=== PATIENT | female | born 1970 | race Hispanic/Latino ===

== ENCOUNTER 2022-04-29 05:54 | Day surgery (SDC) | payer OTHER ==
[2022-04-26 10:22] LABS: BASOPHILS % (AUTO) 0.6 % (0.0-5.0); EOSINOPHILS % (AUTO) 1.5 % (0.0-8.0); HEMATOCRIT 38.4 % (36-48); LYMPHOCYTES % (AUTO) 34.9 % (21.0-51.0); MEAN CORPUSCULAR HGB CONC 33.9 g/dL (32.0-36.0); MEAN CORPUSCULAR VOLUME 88.5 fL (79-99); MONOCYTES % (AUTO) 4.9 % (3.0-13.0); NEUTROPHILS % (AUTO) 57.7 % (40.0-77.0); PLATELET COUNT (AUTO) 227 K/uL (130-400); RED BLOOD CELL COUNT(AUTO) 4.34 MIL/uL (4.00-5.50); RED CELL DISTRIBUTION WIDTH 12.7 % (11.0-15.5); WHITE BLOOD COUNT (AUTO) 7.9 K/uL (4.8-10.8)
[2022-04-26 10:23] LABS: APPEARANCE,URINE CLEAR (CLEAR); BILIRUBIN,URINE NEGATIVE (NEGATIVE); COLOR,URINE LIGHT-YELLOW (YELLOW); GLUCOSE, URINE (UA) NEGATIVE (NEGATIVE); KETONES,URINE NEGATIVE (NEGATIVE); LEUKOCYTE ESTERASE ,URINE NEGATIVE Leu/uL (NEGATIVE); NITRATE,URINE NEGATIVE (NEGATIVE); OCCULT BLOOD,URINE NEGATIVE (NEGATIVE); PROTEIN,URINE NEGATIVE (NEGATIVE); UROBILINOGEN,URINE 0.2 mg/dL (0.2-1.0)
[2022-04-26] MEDS: CEFAZOLIN SODIUM 2 GM VIAL IVPB SCH (13:00)
[2022-04-28 10:17] VITALS: BP 165/67
[2022-04-29] VITALS (20 sets, daily range): BP systolic 102–143; BP diastolic 46–89
[~2022-04-29] VITALS: Ht 162.6 cm; Wt 93.0 kg
[~2022-04-29 05:54] MED LIST: ATOR20TA65 PO; METF-444 PO; TELM40TA8 PO
[2022-04-29] MEDS ORDERED: 0.9%NACL 1000ML 1,000 ML IV ONE (06:28)
[2022-04-29 07:45] LABS: CREATININE 0.7 mg/dL (0.5-1.5); POTASSIUM 3.4 mmol/L (3.5-5.1)
[2022-04-29] MEDS ORDERED: SUCCINYLCHOLINE CHLORIDE 20 MG/ML 10 ML VIAL ONE ×2 (11:22→12:00)
[2022-04-29] MEDS ORDERED: PROPOFOL 10 MG/ML 20ML VIAL IV ONE ×3 (11:23→12:39)
[2022-04-29] MEDS ORDERED: FENTANYL CITRATE PF 50 MCG/1 ML 2ML VIAL ONE ×3 (11:23→13:18)
[2022-04-29] MEDS ORDERED: MIDAZOLAM HCL 1 MG/ML 2ML VIAL ONE ×2 (11:23→12:01)
[2022-04-29] MEDS ORDERED: ROCURONIUM 10MG/1ML SYR 10 MG/ML ML ONE ×2 (11:23→12:01)
[2022-04-29] MEDS ORDERED: EPHEDRINE SULFATE 50 MG/ML AMPULE ONE (11:52)
[2022-04-29] MEDS ORDERED: DEXAMETHASONE SOD PHOSPHATE 10MG/ML 1ML VIAL ONE (12:00)
[2022-04-29] MEDS ORDERED: GLYCOPYRROLATE 1 MG/5 ML SYRINGE ONE (12:00)
[2022-04-29] MEDS ORDERED: ONDANSETRON 4MG INJ ONE ×3 (12:00→14:39)
[2022-04-29] MEDS ORDERED: LIDOCAINE PF 100MG/5ML (2%) SYRINGE 5ML ONE (12:00)
[2022-04-29] MEDS ORDERED: NEOSTIGMINE 5MG/5ML SYR IV ONE (12:01)
[2022-04-29] MEDS: CEFAZOLIN SODIUM 2 GM VIAL IVPB SCH (12:12)
[2022-04-29] MEDS ORDERED: PHENYLEPHRINE HCL 10 MG/ML 1ML VIAL IV ONE ×2 (12:29→13:18)
[2022-04-29] MEDS ORDERED: KETAMINE 50MG/ML SYRINGE 50 MG/ML DISP.SYRIN ONE (13:53)
[2022-04-29] MEDS ORDERED: METOCLOPRAMIDE 10 MG/2 ML VIAL ONE (14:39)
[2022-04-29] MEDS ORDERED: KETOROLAC 30MG VIAL (30MG/ML) ONE (15:04)
[2022-04-29] MEDS ORDERED: PROMETHAZINE HCL 25 MG/ML 1ML AMPULE IM ONE (15:04)
[2022-04-29] MEDS ORDERED: FAMOTIDINE 20MG VIAL IV ONE (15:04)
[2022-04-29] MEDS ORDERED: SCOPOLAMINE HYDROBROMIDE 1 EACH ADH..PATCH TD ONE (15:26)
== END 2022-04-29 17:00 | disposition home or self-care (01) ==
LOC: DAH 05:54
PROVIDERS: ATTEND Student in an Organized Health Care Education/Training Program
DX: C50.411 Malignant neoplasm of upper-outer quadrant of right female breast (principal); Z20.822 Contact with and (suspected) exposure to COVID-19; C96.9 Malignant neoplasm of lymphoid, hematopoietic and related tissue, unspecified; I10 Essential (primary) hypertension; E11.9 Type 2 diabetes mellitus without complications; E66.9 Obesity, unspecified; E78.00 Pure hypercholesterolemia, unspecified; Z82.49 Family history of ischemic heart disease and other diseases of the circulatory system; Z83.3 Family history of diabetes mellitus; Z87.891 Personal history of nicotine dependence; Z79.84 Long term (current) use of oral hypoglycemic drugs; Z79.899 Other long term (current) drug therapy; Z68.35 Body mass index [BMI] 35.0-35.9, adult
CPT/HCPCS: 84703; 85025; 87426; 81003; 36415 ×2; 71045; 19301; 38525; 80048; 82948 ×2; 81025; 76098; 77065; 78195; 19285; A6260; A4663; J3490 ×4; J3010 ×2; J1100; J2710; J0330 ×2; J7030; J2550; J2001; J2250; J2704 ×3; J2405 ×3; J1885; J2765; J2370 ×2; J0690; A9541; G0168; A4649 ×3; C1713; A4215; A4223; A6402; A4222; A4221; A4600

== ENCOUNTER → 2025-02-03 | Outpatient (CLI) | payer OTHER ==
[~2025-02-03] MED LIST changes: +IOHEXOL-350 75 ML VIAL IV ONE
--- NOTE | 2025-02-04 02:38 | HMCIMG ---
EXAM: CT ABDOMEN AND PELVIS WITH INTRAVENOUS CONTRAST CLINICAL HISTORY: Left lower quadrant pain. TECHNIQUE: Axial CT images of the abdomen and pelvis were obtained after IV contrast administration. Additional 7 minutes delayed images have also been acquired. Oral contrast has also been administered. Multiplanar reconstructions. The protocol utilizes one or more of the following dose reduction techniques: automated exposure control, adjustment of mA and/or kV according to patient size, and/or use of iterative reconstruction technique. Total exam DLP is 2571 mGy x cm. CONTRAST: IV Contrast: Administered. Oral Contrast: Administered. COMPARISON: None. FINDINGS: LOWER CHEST: Median sternotomy status. Tip of the catheter is visualized in the right atrium lumen. There are coronary arterial calcifications present. Lung bases are clear. No cardiomegaly or pericardial effusion observed. LIVER: Fatty infiltration of the liver. GALLBLADDER AND BILIARY TREE: The gallbladder is unremarkable. No calcified gallstones. There is no gallbladder distension or wall edema. No intra- or extrahepatic biliary ductal dilation. PANCREAS: The pancreas is unremarkable. No focal cystic or solid mass. SPLEEN: The spleen is unremarkable. Normal size without focal cystic or solid mass. There are 2 splenules measuring 1.7 cm and 1.5 cm. ADRENAL GLANDS: The both adrenals are unremarkable. Non-enlarged. KIDNEYS AND URETERS: Normal renal size and position. The delayed phase images demonstrate normal contrast excretion through both kidneys and ureters. However, there is slight prominence of the right renal pelvicalyceal system with abrupt caliber transition at the ureteropelvic junction, which may represent mild degree of ureteropelvic junction stricture causing mild hydronephrosis. No hydronephrosis on the left side. URINARY BLADDER: The urinary bladder is incompletely distended at the time of examination. Otherwise grossly unremarkable. REPRODUCTIVE ORGANS: The uterus and adnexa are unremarkable. No pelvic masses or pelvic ascites. BOWEL: No stomach or bowel distension. The appendix is unremarkable, series 2, image [id number]. There are colonic diverticula. There is focal short segment thickening of the distal descending and proximal sigmoid colon wall (1.0 cm thick) with subtle pericolonic fat stranding. There is fatty metaplasia of the ileocecal valve cusps. No focal inflammatory change observed. LYMPH NODES: Not enlarged mesenteric or retroperitoneal lymph nodes. PERITONEUM: No ascites or free air. No other fluid collection. VESSELS: The abdominal aorta demonstrates atheromatous calcification without aneurysm or dissection. ABDOMINAL WALL: There is a small umbilical hernia containing fat with defect measuring 0.7 cm. BONES: Degenerative changes present in the lower lumbar spine. No lytic or blastic abnormality observed. IMPRESSION: 1. Colonic diverticulosis with a focal short segment thickening of the distal descending and proximal sigmoid colon wall with subtle pericolonic fat stranding, concerning for acute diverticulitis. No abscess or perforation. 2. Slight prominence of the right renal pelvicalyceal system with abrupt caliber transition at the ureteropelvic junction, which may represent mild ureteropelvic junction stricture causing mild hydronephrosis on the right. No left hydronephrosis. /Sarah
== END | disposition home or self-care (01) ==
LOC: RAH 08:22
PROVIDERS: ATTEND Internal Medicine Gastroenterology
DX: K57.30 Diverticulosis of large intestine without perforation or abscess without bleeding (principal); K76.0 Fatty (change of) liver, not elsewhere classified; I70.0 Atherosclerosis of aorta; M47.816 Spondylosis without myelopathy or radiculopathy, lumbar region; K44.9 Diaphragmatic hernia without obstruction or gangrene; R10.30 Lower abdominal pain, unspecified
CPT/HCPCS: 74177; Q9967